=== PATIENT | male | born 1995 | race Caucasian/White ===

== ENCOUNTER 2019-05-10 18:31 | Emergency (ER) | payer BC, OTHER ==
[~2019-05-10] VITALS: Ht 172.7 cm; Wt 72.6 kg
[2019-05-10 18:35] VITALS: BP 135/81
--- NOTE | 2019-05-10 18:50 | NUR ---
PT CAME INTO THE ED C/O BACK PAIN AND SPASMS. 10/05 PS. PT AAOX4, VSS, AMBULATORY. NO ACUTE DISTRESS NOTED. CONNECTED TO THE MONITOR AND POX. AWAITING FOR MD GELLER
[2019-05-10] MEDS ORDERED: CYCLOBENZAPRINE 10 MG TABLET PO ONE (19:00)
[2019-05-10] MEDS ORDERED: KETOROLAC TROMETHAMINE INJ 60 MG/2 ML VIAL IM ONE ×2 (19:00→19:04)
[2019-05-10] MEDS ORDERED: CYCLOBENZAPRINE 10 MG TABLET ONE (19:04)
--- NOTE | 2019-05-10 19:38 | NUR ---
Patient discharged to home in stable condition. Written and verbal after care instructions given. Patient verbalizes understanding of instruction.
== END 2019-05-10 19:38 | disposition home or self-care (01) ==
LOC: ER 18:34
DX: M62.830 Muscle spasm of back (principal); V49.69XA Unspecified car occupant injured in collision with other motor vehicles in traffic accident, initial encounter; Y93.89 Activity, other specified; Y92.413 State road as the place of occurrence of the external cause; Y99.8 Other external cause status
CPT/HCPCS: 96372; 99283; J1885

== ENCOUNTER 2019-05-11 08:14 | Emergency (ER) | payer BC ==
[~2019-05-11] VITALS: Ht 172.7 cm; Wt 72.6 kg
[2019-05-11 08:24] VITALS: BP 124/74
[2019-05-11] MEDS ORDERED: KETOROLAC TROMETHAMINE INJ 60 MG/2 ML VIAL IM ONE ×2 (09:00→09:03)
--- NOTE | 2019-05-11 09:29 | NUR ---
Patient discharged to home in stable condition. Written and verbal after care instructions given. Patient verbalizes understanding of instruction.
== END 2019-05-11 09:29 | disposition home or self-care (01) ==
LOC: ER 08:14
DX: S29.012A Strain of muscle and tendon of back wall of thorax, initial encounter (principal); M62.830 Muscle spasm of back; X58.XXXA Exposure to other specified factors, initial encounter; Y93.89 Activity, other specified; Y92.89 Other specified places as the place of occurrence of the external cause; Y99.8 Other external cause status
CPT/HCPCS: 96372; 99283; J1885